=== PATIENT | female | born 1950 | race Caucasian/White ===

== ENCOUNTER 2017-11-20 11:16 | Inpatient (IN) | payer OTHER ==
[2017-11-04 10:09] VITALS: BMI 52.0
--- NOTE | 2017-11-04 10:37 | PAT Medication Instructions ---
Service Date Nov 04, 2017. Current Home Medication List Cyanocobalamin (Vitamin B12), 1,000 MCG SL QAM Cyclobenzaprine Hcl (Flexeril), 10 MG PO TID PRN for PRN Gabapentin (Neurontin), 100 MG PO TID Hydrochlorothiazide (Hctz), 25 MG PO QAM Hydrocodone/Acetaminophen 5MG/325MG (Lenora 5MG/325MG), 1 TABLET PO PRN PRN for Pain Meloxicam (Mobic), 15 MG PO QAM Multivitamin (Multivitamin), 1 TAB PO for AM Tolterodine Tartrate (Detrol LA), 1 CAP PO HS Medication Instructions For Your Scheduled Surgery - Check with surgeon for instructions: Meloxicam (Mobic), 15 MG PO QAM - Hold the following medications the morning of surgery: Cyanocobalamin (Vitamin B12), 1,000 MCG SL QAM Cyclobenzaprine Hcl (Flexeril), 10 MG PO TID PRN for PRN Hydrochlorothiazide (Hctz), 25 MG PO QAM Multivitamin (Multivitamin), 1 TAB PO for AM - Take the following medications the morning of surgery with a sip of water: Hydrocodone/Acetaminophen 5MG/325MG (Lenora 5MG/325MG), 1 TABLET PO PRN PRN for Pain (okay to take up to 4 hours prior to surgery if needed) Gabapentin (Neurontin), 100 MG PO TID - Take the following medications as scheduled the night before surgery: Tolterodine Tartrate (Detrol LA), 1 CAP PO HS Hydrocodone/Acetaminophen 5MG/325MG (Lenora 5MG/325MG), 1 TABLET PO PRN PRN for Pain (if needed) Gabapentin (Neurontin), 100 MG PO TID Cyclobenzaprine Hcl (Flexeril), 10 MG PO TID PRN for PRN (if needed) If you have any questions please call us at [phone] or [phone] or [phone]
[2017-11-04 11:33] LABS: BASO % 0.2 %; BASO ABS # 0.02 K/uL (0-0.2); EOS % 0.6 %; EOS ABS # 0.06 K/uL (0-0.5); HEMATOCRIT 39.9 % (37-47); HEMOGLOBIN 13.1 g/dL (12.0-16.0); IG# 0.02 K/uL (0.00-0.02); LYMPH % 21.7 %; LYMPH ABS # 2.35 K/uL (1.2-3.4); MEAN CELL VOLUME 87.5 fL (80-100); MEAN CORPUSCULAR HEMOGLOBIN 28.7 pg (25-34); MEAN CORPUSCULAR HGB CONC 32.8 g/dl (32-36); MEAN PLATELET VOLUME 10.1 fL (7.4-10.4); MONO % 6.7 %; MONO ABS # 0.73 K/uL (0.11-0.59); NEUT % 70.6 %; NEUT ABS # 7.66 K/uL (1.4-6.5); PLATELET COUNT 458 K/uL (130-400); RED CELL DISTRIBUTION WIDTH CV 14.4 % (11.5-14.5); RED CELL DISTRIBUTION WIDTH SD 45.3 fL (36.4-46.3); WHITE BLOOD COUNT 10.84 K/uL (4.8-10.8)
[2017-11-04 11:43] LABS: PTT PATIENT 26.3 SECONDS (21.0-31.0)
[2017-11-04 11:43] LABS: CALCIUM 9.1 mg/dl (8.5-10.1); CREATININE 0.68 mg/dl (0.60-1.20); POTASSIUM 3.5 mmol/L (3.5-5.1)
[2017-11-04 12:14] LABS: HEMOGLOBIN A1C 5.6 % (4.5-5.6)
--- NOTE | 2017-11-11 22:14 | HISTORY & PHYSICAL EXAMINATION ---
DATE OF ADMISSION: 11/20/2017 CHIEF COMPLAINT: Bilateral knee pain and discomfort, right side greater than left. HISTORY OF PRESENT ILLNESS: The patient is a 67-year-old white female from [place] who presents for surgical treatment of her knees. She has a long history of bilateral knee pain and discomfort followed by my partner Dr. Pittman. The right knee has been bothering her more than the left. She has been using a cane to get around for the past couple of years. She has had injections which provided very temporary relief. This has gotten less successful over time. Her walking tolerance is very limited. She has global pain. She has nighttime discomfort. Of note, the patient did recently see the pain physicians at [facility]. She had some type of ablation in her back. She takes tramadol and hydrocodone. She also has a history of gastric bypass surgery. PAST MEDICAL HISTORY: Significant for: 1. Low back pain status post thermal ablation. 2. Sciatica. 3. Obesity, status post gastric bypass surgery in 2006. She initially weighed 350 pounds and then went down to 260 and back up to 315, new around 275. 5. Umbilical hernia repair. PREVIOUS SURGERIES: Include: 1. Gastric bypass surgery in 2006. 2. Cholecystectomy. ALLERGIES: PHENERGAN. CURRENT MEDICINES: Include: 1. Hydrochlorothiazide 25 mg a day. 2. Detrol 2 mg a day. 3. Neurontin 100 mg. 4. Tramadol 50 mg. 5. Meloxicam 15 mg a day. 6. Sublingual vitamin B12. 7. Hydrocodone. SOCIAL HISTORY: A 67-year-old white female. She is from [place], lives by herself. FAMILY HISTORY: Noncontributory. REVIEW OF SYSTEMS: Negative for diabetes. Denies any chest pain, no shortness of breath. No history of DVT or PE. PHYSICAL EXAMINATION: GENERAL: Reveals obese, middle-aged female. She looks to be in reasonably good health. HEENT: Benign. NECK: Supple, no lymphadenopathy. LUNGS: Clear to auscultation. HEART: Regular rate and rhythm. ABDOMEN: Soft, nontender, nondistended. EXTREMITIES: Grossly neurovascularly intact except as follows: Examination of both knees reveals the patient walks with waddling gait. She uses a cane to walk. She has varus alignment to both knees with a varus thrust with weightbearing. She has some mild stasis changes distally. Range of motion is pretty symmetrically, it is about 5 degrees short of full extension to about 110-115 degrees of flexion. No instability. No pain with hip motion. X-RAYS: X-rays reveal advanced bilateral knee DJD. She has complete loss of her medial joint space. She has diffuse osteopenia. ASSESSMENT: A 67-year-old white female status post gastric bypass surgery with a history of back pain as well as chronic severe bilateral knee degenerative joint disease. She has failed conservative treatment and would like to consider having surgery. Right knee is bothering more than the left. PLAN: We will take her to the operating room and do a right total knee replacement. The risks and benefits of this procedure were explained to the patient including but not limited to DVT, PE, , infection, neurological injury, vascular injury, bleeding problem, pain, limited range of motion, stiffness, failure to relieve her symptoms, incomplete relief of symptoms, need for further surgery in the future, fracture, leg length inequality, nerve palsy, etc. The patient understands and desires to proceed. Informed consent was obtained. We did talk about trying to get off her tramadol and hydrocodone before surgery. We did discuss with her increased risk of infection based on her weight. She understands and desires to proceed. We will likely need to put a tibial stem due to her large size and osteopenia. As far as discharge plans, she is planning to be discharged to [facility] as she lives by herself. She went there after gallbladder surgery.
[2017-11-20] VITALS (7 sets, daily range): BP systolic 115–157; BP diastolic 56–93; PULSE 71–105; TEMP 36.3–36.8; O2SAT 90–100; Ht 157.5 cm; Wt 128.7 kg
[~2017-11-20] VITALS: Ht 157.5 cm; Wt 128.7 kg
[~2017-11-20 11:16] MED LIST: ACETAMINOPHEN 500 MG TAB PO SCH; BUPIVACAINE 0.25% 30 ML VIAL ONE; BUPIVACAINE 0.5 % 5 MG/1 ML PF 10ML VIAL ONE; BUPIVACAINE LIPOSOME 266 MG, BUPIVACAINE/EPINEPHRINE INJ 50 ML, SODIUM CHLORIDE 0.9% PF... INFIL SCH; CEFAZOLIN 3000MG IV PUSH 22.5 ML IV SCH; CYAN100020 PO; CYCL10TA6 PO; DTRSR/2 PO; FAMOTIDINE 20 MG TAB PO SCH; GABA-112 PO; GABAPENTIN 300 MG CAP PO SCH; HYDR-5688 PO; HYDR25TA4 PO; LACTATED RINGER'S 1000ML 1,000 ML IV SCH; LACTATED RINGER'S 1000ML 500 ML IV SCH; LACTATED RINGER'S 1000ML IV SCH; MELO7.5T5 PO; METOCLOPRAMIDE HCL 10 MG TAB PO SCH; MULT-506 PO; SCOPOLAMINE 1.5 MG TDSY TD SCH; TRANEXAMIC ACID INJ 1,000 MG x 1 Bag Preop IV SCH
[2017-11-20] MEDS ORDERED: PROPOFOL IV EMULSION 10 MG/ML 20 ML VIAL IV ONE (11:38)
[2017-11-20] MEDS ORDERED: MIDAZOLAM HCL 1 MG/ML 2ML VIAL ONE ×4 (11:38→15:04)
[2017-11-20] MEDS ORDERED: BACITRACIN 50000 UNIT VIAL ONE (12:21)
[2017-11-20] MEDS ORDERED: BUPIVACAINE LIPOSOME 1/3% 266 MG/20 ML VIAL INFIL ONE (12:21)
[2017-11-20] MEDS ORDERED: SODIUM CHLORIDE 0.9% PF 50 ML VIAL ONE (12:21)
[2017-11-20] MEDS ORDERED: BUPIVACAINE 0.25% 30 ML VIAL ONE (12:25)
[2017-11-20] MEDS ORDERED: EpINEphrine INJ 1MG/ML AMP 1 MG/ML AMP ONE (12:25)
[2017-11-20] MEDS ORDERED: ONDANSETRON INJ 2 MG/ML 2 ML VIAL IV PRN ×2 (12:30→16:00)
[2017-11-20] MEDS ORDERED: PHENYLEPHRINE 100MCG/ML 5ML SYR IV PRN (12:30)
[2017-11-20] MEDS ORDERED: ATROPINE SULFATE 0.1 MG/ML 5ML SYR IV PRN (12:30)
[2017-11-20] MEDS ORDERED: KETOROLAC TROMETHAMINE 15 MG/ML VIAL IV. PRN (12:30)
[2017-11-20] MEDS ORDERED: EpHEDrine SULFATE INJ 50 MG/ML AMP IV PRN (12:30)
--- NOTE | 2017-11-20 12:56 | History & Physical Bridge Note ---
H&P Re-Evaluation Bridge Note: I have examined the patient, reviewed the History & Physical and in the interval since the performance of the History & Physical I have noted the following changes of clinical significance: No changes noted
[2017-11-20] MEDS ORDERED: VANCOMYCIN HCL 1000MG/20ML VIAL ONE ×2 (13:14→15:13)
[2017-11-20] MEDS ORDERED: FENTANYL CITRATE INJ 50 MCG/1 ML 2 ML VIAL ONE ×2 (14:42→15:11)
[2017-11-20] MEDS ORDERED: FLUMAZENIL 0.1 MG/1 ML 10 ML VIAL IV ONE (15:55)
--- NOTE | 2017-11-20 15:55 | [facility] Post Operative Brief Note ---
Immediate Operative Summary Operative Date Nov 20, 2017. Pre-Operative Diagnosis Right Knee Degenerative Joint Disease Post-Operative Diagnosis Same as preop Procedure(s) Performed Right Total Knee Arthroplasty Surgeon Dr. Hannah [facility] Attendant Surgeon(s) Trace Griggs PA-C Estimated Blood Loss 50 ml Findings Consistent with Post-Op Diagnosis Specimens A. Right Knee Bone and Tissue Drains None Anesthesia Type MAC Spinal Regional Complication(s) none Disposition Accompanied Pt To Recover: no Disposition: Recovery Room / PACU
[2017-11-20] MEDS ORDERED: MAGNESIUM HYDROXIDE SUSP 30 ML UDC PO PRN (16:00)
[2017-11-20] MEDS ORDERED: BISACODYL 10 MG SUPP PR PRN (16:00)
[2017-11-20] MEDS ORDERED: ALUMINUM/MAGNESIUM/SIMETH (MAALOX MAX) 30 ML UDC PO PRN (16:00)
[2017-11-20] MEDS ORDERED: HYDROmorphone INJ 0.5 MG/0.5 ML SYR IV PRN (16:00)
[2017-11-20] MEDS ORDERED: SILVER SULFADIAZINE 1% CR 50 GM JAR EXT PRN (16:00)
[2017-11-20] MEDS ORDERED: METOCLOPRAMIDE HCL INJ 5 MG/ML 2 ML VIAL IV PRN (16:00)
[2017-11-20] MEDS ORDERED: ZOLPIDEM TARTRATE 5 MG TAB PO PRN (16:00)
[2017-11-20] MEDS ORDERED: CYCLOBENZAPRINE HCL 10 MG TAB PO PRN (16:00)
[2017-11-20] MEDS: HYDROmorphone INJ 2 MG/ML SYR/VIAL IV PRN ×2 (16:11→16:20)
--- NOTE | 2017-11-20 16:33 | DIAGNOSTIC IMAGING REPORT ---
R KNEE 1 OR 2 VIEWS ROUTINE CLINICAL HISTORY: Postoperative evaluation. COMPARISON: Right knee radiographs October 26, 2017. FINDINGS: Alignment of the right knee arthroplasty with longstem tibial component is anatomic. There is no periprosthetic fracture or unexpected radiopaque foreign body. There may be screw tracts within the medial tibial plateau. There are skin yan. IMPRESSION: Expected findings following total right knee arthroplasty. Electronically signed by: Vikram Muller M.D. 11/20/2017 4:32 PM Dictated Date/Time: 11/20/2017 4:31 PM
--- NOTE | 2017-11-20 16:47 | Anesthesiology Progress Note ---
Anesthesia Post Op Note Date & Time Nov 20, 2017 at 16:47 Vital Signs Pain Intensity: 4 Vital Signs Past 12 Hours Date Time Temp Pulse Resp B/P (MAP) Pulse Ox O2 Delivery O2 Flow Rate FiO2 11/20/17 16:41 73 16 11/20/17 16:41 72 16 100 11/20/17 16:40 140/64 11/20/17 16:36 77 15 92 11/20/17 16:36 77 15 11/20/17 16:35 150/72 11/20/17 16:31 75 16 150/50 96 11/20/17 16:31 74 16 11/20/17 16:26 74 16 11/20/17 16:26 73 16 95 11/20/17 16:25 144/71 11/20/17 16:23 75 12 99 11/20/17 16:23 74 12 11/20/17 16:21 118/89 11/20/17 16:18 76 21 96 11/20/17 16:18 78 21 11/20/17 16:16 120/76 11/20/17 16:13 75 14 11/20/17 16:13 76 14 96 11/20/17 16:10 127/75 11/20/17 16:08 79 24 11/20/17 16:08 77 24 96 11/20/17 16:06 130/63 11/20/17 16:03 78 138/73 94 11/20/17 16:03 78 11/20/17 16:03 36.6 78 16 138/73 94 Nasal Cannula 2 11/20/17 11:42 36.8 105 20 131/93 94 Room Air Notes Mental Status: alert / awake / arousable, participated in evaluation Pt Amnestic to Procedure: Yes Nausea / Vomiting: adequately controlled Pain: adequately controlled Airway Patency, RR, SpO2: stable & adequate BP & HR: stable & adequate Hydration State: stable & adequate Anesthetic Complications: no major complications apparent
[2017-11-20] MEDS: CHECK SCOPOLAMINE PATCH PLACEMENT SCH ×2 (17:22→23:05)
[2017-11-20] MEDS: D5W AND 1/2NSS + 20MEQ KCL 1,000 ML IV SCH (17:58)
[2017-11-20] MEDS: KETOROLAC TROMETHAMINE 15 MG/ML VIAL IV. SCH ×2 (17:58→23:02)
[2017-11-20] MEDS: FERROUS GLUCONATE 324 MG TAB PO SCH (17:58)
[2017-11-20] MEDS: OXYCODONE HCL IR 5 MG TAB (IMMEDIATE RELEASE) PO PRN (18:59)
--- NOTE | 2017-11-20 19:21 | OPERATIVE REPORT ---
DATE OF OPERATION: 11/20/2017 SURGEON: Wicho Hannah MD. ADULT CARE MANAGER: JEN Urias. PREOPERATIVE DIAGNOSIS: Right knee degenerative joint disease. POSTOPERATIVE DIAGNOSIS: Same. PROCEDURE PERFORMED: Right cemented posterior stabilized total knee arthroplasty. COMPLICATIONS: None. ESTIMATED BLOOD LOSS: 50 mL FLUID REPLACEMENT: 2500 mL crystalloid fluid replacement. TOURNIQUET TIME: 96 minutes at 350 mmHg. ANESTHESIA: Spinal with adductor canal block. DRAINS: None. SPECIMEN: Right knee sent for pathology. OPERATIVE INDICATIONS: The patient is a 67-year-old morbidly obese female who has a long history of bilateral knee pain and discomfort, right side greater than left. She has undergone gastric bypass surgery with some weight loss but she has yo-yoed her weight over the years. She has continued to be debilitated by severe bilateral knee pain. She has had to resort to using a cane for the past several years. She elected to proceed with total knee arthroplasty. The increased risk with her size and obesity was explained and she understood and wanted to proceed. We did place a tibial stem in the tibia due to her large size, obesity and osteopenia from her gastric bypass surgery. OPERATIVE FINDINGS: Operative findings revealed advanced right knee DJD. She had grade 4 [id number]-[id number] disease in all 3 compartments. Moderate size joint effusion. A very large soft tissue envelope. Her bone was not a severely osteopenic as expected based on x-rays and history. OPERATIVE IMPLANTS: Operative implants consisted of: 1. Biomet size 65 right posterior stabilized femoral component. 2. Biomet size 67 tibial tray with a 5 mm offset and 80 x 13 mm fluted stem and a small cruciate wing. 3. A 10 mm posterior stabilized polyethylene insert. 4. A 31 x 8 all poly patella. OPERATIVE PROCEDURE: The patient taken to the operating room, identified and placed on operative table in supine position. All contact areas were appropriately padded. IV antibiotics were provided by the anesthesia team. A spinal anesthetic and adductor canal block had been provided in the holding area. Anne catheter was placed in sterile fashion. Right thigh tourniquet was then placed. Right lower extremity was then prepped and draped in the usual sterile fashion. The right leg was elevated and exsanguinated with Esmarch and tourniquet was placed at 350 mmHg. An anterior approach to the right knee was then performed through a longitudinal incision centered over the patella. Sharp dissection was carried out through the subcutaneous tissues down to the level of the extensor mechanism. A medial parapatellar arthrotomy incision was made. Some subperiosteal dissection was carried out medially. The fat pad was resected from beneath the patellar tendon. The lateral patellofemoral ligament was released. Patella was subluxated laterally and the knee was flexed. The osteophytes were taken off the distal femur. The ACL and PCL were then released from the distal femur and the tibia subluxated anteriorly. The tibial eminence was then resected. The intramedullary canal was entered and then reamed up to a size 13. We used the IM reamer to cut the tibia. We removed about 2 mm from the most deficient aspect tibia from the medial side. This was sized to a size 67. Some osteophytes were taken off posteromedially. I then waited to prepare the remainder of the tibia until the end of the case. The distal femur was entered with a sharp drill. Intramedullary canal was suctioned. A right 5-degree valgus cutting guide was placed. Distal femoral cutting block was placed. Distal femoral cut was made to take an additional 3 mm of bone off the distal femur. The femur was then sized to a size 65, and it sized exactly to a 65. The AP cutting block was pinned parallel to the epicondylar axis which was 4 degrees of external rotation. The anterior cut, anterior chamfer, posterior cut, posterior chamfer cuts were made. The box cutting guide was placed and adjusted slightly lateral and the box cut was made. The knee was flexed. The remnants of the medial and lateral menisci were excised. The osteophytes were taken off the posterior aspect of the femur. I then went on to prepare the remainder of the tibia. The tibial tray was placed on the tibia and the 5 mm offset guide was selected. I then used the offset reamer to ream the tibia and the cruciate wing punch was used to create the defect for the cruciate wing. Upon placing the trial tibial tray, I really could not get this down, so I did ream up to a 14 and was able to place the trial tray in place. We then trialed the knee and a 10 mm insert fit most appropriately. Attention was then drawn to the patella. Patella was cleaned of all soft tissues. Patella thickness measured 22 mm and cut down to 13mm. It was sized to a size 31 patella. Lug holes were drilled for the 31 patella. Lateral osteophyte was removed. Patella button was placed. Knee was taken through range of motion and the patella tracked nicely with no thumbs test. Attention was then drawn toward placement of permanent components. All trial components were removed. A bone plug was placed in the distal femur to limit blood loss. I irrigated the wound extensively. A double batch of Palacos G cement was mixed with an additional gram of vancomycin due to her obesity and nutritional status. A size 65 right posterior stabilized femoral component was then placed. Upon placing the tibial tray, I could not get the tray down, only about half the way down the canal on initial placement. Therefore, I took the cement off of the surface of the tibia and off the tibial tray and just elected to cement the patella. We did place a trial tray in placed with a 10 insert and held the knee out into full extension until cement hardened. Once the cement hardened, I removed the trial tibia and reassessed the situation. We over reamed the tibial canal and were able to get the tibial tray in reasonably well. There were occasions where it still kind of hung up a little high, but with just a little tapping, we could get it seated appropriately. Therefore, the tray was clean. The knee was irrigated again. A single batch of Palacos G cement was mixed with an additional gram of vancomycin. The tibial tray was then cemented in place. 10 mm insert was placed. The knee was brought out in full extension. All extraneous cement was removed. Once the cement hardened, final cement check was performed. The wound was then irrigated. I injected locally with 100 mL of combination of 20 mL of Exparel, 30 mL of normal saline, 50 mL of 0.25% Marcaine with epinephrine. The patient did receive 1 gram of tranexamic acid. The tourniquet was then let down for a tourniquet time of 96 minutes. Hemostasis was assured with use of electrocautery. The wound was once again irrigated. Extensor mechanism was closed with a combination of #1 PDS suture and #1 Vicryl suture in a [id number] fashion. Extensor mechanism was checked and found to be intact. Subcutaneous tissues were then closed with 2-0 Dexon suture in a buried interrupted fashion. Skin was closed with skin yan. The leg was then cleaned and dried and a sterile dressing composed of Xeroform, 4 x 4's, sterile cast padding and Justyn bandage were applied. The patient was then transferred to the recovery in stable condition. The patient tolerated the procedure well with no complications. All needle and sponge counts were correct at the end of the operation. I attest to the content of the Intraoperative Record and any orders documented therein. Any exceptions are noted below. JANNETTED
[2017-11-20] MEDS: DOCUSATE SODIUM 100 MG CAP PO SCH (20:43)
[2017-11-20] MEDS: TAPENTADOL ER 50 MG TABCR PO SCH (20:43)
[2017-11-20] MEDS: TOLTERODINE TARTRATE LA 2 MG CAPCR PO SCH (20:44)
[2017-11-20] MEDS: SENNA 8.6 MG TAB PO SCH (20:44)
[2017-11-20] MEDS: ASPIRIN 81 MG ECTAB PO SCH (20:44)
[2017-11-20] MEDS: GABAPENTIN 100 MG CAP PO SCH (20:44)
[2017-11-20] MEDS: CEFAZOLIN IV 2,000 MG in SYRINGE 0 ML IV SCH (21:34)
[2017-11-20] MEDS: ACETAMINOPHEN 500 MG TAB PO SCH ×2 (21:34→21:41)
[2017-11-20] MEDS ORDERED: TRANEXAMIC ACID INJ 1,000 MG in SODIUM CHLORIDE 0.9% 100ML 100 ML IV SCH (22:00)
[2017-11-21] MEDS: D5W AND 1/2NSS + 20MEQ KCL 1,000 ML IV SCH ×2 (01:18→11:10)
[2017-11-21 03:30] VITALS: BP 120/61; PULSE 72; TEMP 36.3; O2SAT 98
[2017-11-21] MEDS: KETOROLAC TROMETHAMINE 15 MG/ML VIAL IV. SCH ×3 (05:04→18:02)
[2017-11-21] MEDS: ACETAMINOPHEN 500 MG TAB PO SCH ×3 (05:05→21:30)
[2017-11-21] MEDS: CEFAZOLIN IV 2,000 MG in SYRINGE 0 ML IV SCH (05:05)
[2017-11-21 05:53] LABS: HEMATOCRIT 35.2 % (37-47); HEMOGLOBIN 11.5 g/dL (12.0-16.0); MEAN CELL VOLUME 88.2 fL (80-100); MEAN CORPUSCULAR HEMOGLOBIN 28.8 pg (25-34); MEAN CORPUSCULAR HGB CONC 32.7 g/dl (32-36); MEAN PLATELET VOLUME 9.7 fL (7.4-10.4); PLATELET COUNT 287 K/uL (130-400); RED CELL DISTRIBUTION WIDTH SD 48.6 fL (36.4-46.3); WHITE BLOOD COUNT 11.59 K/uL (4.8-10.8)
[2017-11-21 06:21] LABS: CALCIUM 8.3 mg/dl (8.5-10.1); CREATININE 0.93 mg/dl (0.60-1.20); POTASSIUM 4.3 mmol/L (3.5-5.1)
[2017-11-21 07:40] VITALS: BP 112/69; PULSE 82; TEMP 37.4; O2SAT 98
--- NOTE | 2017-11-21 07:57 | PROGRESS NOTE ---
DATE: 11/21/2017 SUBJECTIVE: A 67-year-old white female postop day 1 from a right knee replacement. She is doing well. Pain is controlled. No chest pain or shortness of breath. Not feeling dizzy or lightheaded. OBJECTIVE: VITAL SIGNS: Temperature 36.3. Vital signs stable. PHYSICAL EXAMINATION: GENERAL: Reveals a healthy, pleasant middle-aged female. She is sitting up in her bed and looks quite comfortable. EXTREMITIES: Examination of the right leg reveals it to be well aligned. Dressing is clean, dry and intact. She can dorsiflex and plantarflex her foot appropriately. She can do a straight leg raise. LABORATORY DATA: Hemoglobin is 11.5, hematocrit 35.2. Electrolytes are stable. ASSESSMENT: A 67-year-old white female postop day 1 from a right knee replacement, doing well. Pain is controlled. She is neurologically intact. PLAN: 1. DVT prophylaxis including thigh high TEDs, SCDs, and aspirin twice a day. 2. PT, OT. Weightbearing as tolerated. Right total knee protocol. 3. Pain control, doing well with current pain regimen. 4. Disposition: She is hoping to be discharged to [facility] for a rehab stay once stable.
[2017-11-21] MEDS: CHECK SCOPOLAMINE PATCH PLACEMENT SCH ×2 (08:00→16:00)
[2017-11-21] MEDS ORDERED: MULTIVITAMIN TAB PO SCH (09:00)
[2017-11-21] MEDS: FERROUS GLUCONATE 324 MG TAB PO SCH ×3 (09:28→18:02)
[2017-11-21] MEDS: TAPENTADOL ER 50 MG TABCR PO SCH ×2 (09:29→21:29)
[2017-11-21] MEDS: HYDROCHLOROTHIAZIDE 25 MG TAB PO SCH (09:29)
[2017-11-21] MEDS: GABAPENTIN 100 MG CAP PO SCH ×3 (09:29→21:30)
[2017-11-21] MEDS: CYANOCOBALAMIN 500 MCG TAB (VIT B-12) PO SCH (09:52)
[2017-11-21] MEDS: OXYCODONE HCL IR 5 MG TAB (IMMEDIATE RELEASE) PO PRN (09:52)
[2017-11-21] MEDS: MULTIVITAMIN TAB PO SCH (09:53)
[2017-11-21] MEDS: DOCUSATE SODIUM 100 MG CAP PO SCH ×2 (09:53→21:00)
[2017-11-21] MEDS: PANTOprazole SOD 40 MG TAB PO SCH (09:54)
[2017-11-21] MEDS: ASPIRIN 81 MG ECTAB PO SCH ×2 (09:54→21:31)
[2017-11-21 11:49] VITALS: BP 112/71; PULSE 92; TEMP 37; O2SAT 91
[2017-11-21 15:00] VITALS: BP 101/57; PULSE 90; TEMP 36.8; O2SAT 91
[2017-11-21] MEDS: SENNA 8.6 MG TAB PO SCH (21:00)
[2017-11-21] MEDS: TOLTERODINE TARTRATE LA 2 MG CAPCR PO SCH (21:39)
[2017-11-21] MEDS ORDERED: ASPEC81 PO (21:46)
[2017-11-21] MEDS ORDERED: ACET-24 PO (21:46)
[2017-11-21] MEDS ORDERED: FRRG PO (21:46)
--- NOTE | 2017-11-21 21:50 | Discharge Instructions ---
Discharge Instructions Date of Service Nov 21, 2017. Admission Reason for Admission: Right Knee Degenerative Joint Disease, Knee Pain Discharge Discharge Diagnosis / Problem: Right Knee Replacement Discharge Goals Goal(s): Decrease discomfort, Improve function, Increase independence, Improve disease control, Therapeutic intervention Activity Recommendations Activity Level: Assistance Required Therapies: Physical Therapy, Occupational Therapy Weightbearing Status: Right weightbearing . Additional Information Patient informed of condition: Yes Advance Directives: No DNR: No Level of Care: Acute Rehab Communicable Disease: No Prognosis: Improving Instructions / Follow-Up Instructions / Follow-Up ACTIVITY RECOMMENDATIONS: Physical Therapy: * You will go to physical therapy three times each week for four to six weeks after your surgery in order to regain your knee range of motion and to retrain your knee to work properly. * It is just as important to make sure you are getting your knee perfectly straight as it is to regain your knee bend. * Taking a pain pill an hour before therapy can help you have a more productive and comfortable therapy session. Home Exercise: * You were shown a series of exercises (heel props, heel slides, etc.) in the hospital. Do these exercises three to four times each day including the exercises you were shown in physical therapy. Walking: * Get up and walk several times each day. For the first four weeks, try not to stand or walk for more than one hour at a time. If you do stand or walk for more than one hour, you will not hurt anything, but your knee and leg will likely swell. * As you feel comfortable, you may change from the walker or crutches to a cane and then to independent walking. MEDICATIONS: New Medicine: * You will likely be taking one or more of these medications: 1. Oxycodone - A quick and shorter-acting pain medication. Take one to two tablets every four to six hours to lessen your pain. 2. Iron Sulfate - Take three times each day for the month after surgery to help you replace the blood lost during surgery. 3. Aspirin - Thins your blood to lessen the chance of forming a blood clot. * The most common side effects of pain medicine and iron are nausea and constipation. If nausea or constipation is too much of a problem or if you have any questions about your new medicines or doses, call [facility] at [phone]. We will try to help you manage these issues. VERY IMPORTANT TO READ AND REVIEW" Pain: * The immediate post-operative period after knee replacement surgery is often quite painful. * You are given a prescription for pain medicine. You should take it, as directed, when you need it, especially before physical therapy and before going to bed. Pain that interferes with sleep is very common and can last several months. * You will likely need pain medicine for the first four to six weeks. It will not stop all of the pain. The pain will lessen and as you feel better, you may change to milder pain medicine such as Tylenol. * The most common side effects of pain medicine are nausea and constipation, so don't take more than you need. SPECIAL CARE INSTRUCTIONS: TEDs/Elastic Stockings: * The white elastic stockings help limit swelling and prevent blood clots from forming in your legs. The more you wear them, the more they work. * Wear them for six weeks after knee replacement surgery and four weeks after partial knee replacement. Prevention of Infection: * Take antibiotics one hour before any dental cleaning, dental work, urological procedure, gastrointestinal procedure or any invasive surgery in order to prevent your new joint from getting infected. * You may get the antibiotics from the doctor performing the procedure or you may call our office at before and we will call in a prescription to the pharmacy of your choice. Things to Watch For: * Drainage from the incision site that occurs more than one week after your surgery. * Severely increased knee/leg pain or swelling. * Increased redness at the incision site. * Fever above 102 degrees Fahrenheit. * Unusual chest pain or shortness of breath. * Unusual pain or burning with urination. Call [facility] at with any of the above problems or if you have any questions about your medicines or recovery. FOLLOW UP VISIT: Make an appointment to see your doctor for approximately two weeks after surgery for a progress check and staple removal by calling the office at . Current Hospital Diet Patient's current hospital diet: Regular Diet Discharge Diet Recommended Diet: Regular Diet Procedures Procedures Performed: Right Total Knee Arthroplasty Pending Studies Studies pending at discharge: no Laboratory Results Hemoglobin A1c Test 11/04/17 10:42 Range/Units Estimated Average Glucose 114 mg/dl Hemoglobin A1c 5.6 4.5-5.6 % Medical Emergencies . Who to Call and When: Medical Emergencies: If at any time you feel your situation is an emergency, please call 911 immediately. . Non-Emergent Contact Non-Emergency issues call your: Surgeon . . "Provider Documentation" section prepared by Wicho Hannah. . Core Measure Problem Core Measures: None
[2017-11-21] MEDS ORDERED: RXC5 PO (21:51)
[2017-11-21 23:23] VITALS: BP 118/70; PULSE 78; TEMP 36.6; O2SAT 91
[2017-11-22] MEDS: CHECK SCOPOLAMINE PATCH PLACEMENT SCH ×4 (00:16→23:15)
[2017-11-22] MEDS: KETOROLAC TROMETHAMINE 15 MG/ML VIAL IV. SCH ×3 (00:17→11:58)
[2017-11-22] MEDS: OXYCODONE HCL IR 5 MG TAB (IMMEDIATE RELEASE) PO PRN ×2 (02:41→11:57)
[2017-11-22] MEDS: ACETAMINOPHEN 500 MG TAB PO SCH ×3 (06:16→21:25)
[2017-11-22 07:30] VITALS: BP 119/76; PULSE 81; TEMP 36.9; O2SAT 95
--- NOTE | 2017-11-22 08:08 | PROGRESS NOTE ---
DATE: 11/22/2017 SUBJECTIVE: A 67-year-old white female postop day 2 from right knee replacement. Her knee was pretty painful yesterday but doing a little bit better this morning. No chest pain or shortness of breath. Not feeling dizzy or lightheaded. OBJECTIVE: VITAL SIGNS: Temperature 36.9. Vital signs stable. PHYSICAL EXAMINATION: GENERAL: Reveals a pleasant elderly female. She is lying in bed, looks pretty comfortable. EXTREMITIES: Examination of the right leg reveals the leg to be well aligned. Dressing is clean, dry and intact. Minimal drainage. Calf is soft and supple. She is neurologically intact. ASSESSMENT: A 67-year-old white female postop day 2 from right knee replacement, doing pretty well. Pain is reasonably well controlled. She is neurologically intact. PLAN: 1. DVT prophylaxis including thigh-high TEDs, SCDs, and aspirin twice a day. 2. PT/OT. Weightbearing as tolerated. Right total knee protocol. 3. Pain control, doing pretty well with current pain regimen. 4. Disposition: Plan to discharge to [facility] if approved. If not, likely going to [facility]. Waiting for insurance approval.
[2017-11-22] MEDS: FERROUS GLUCONATE 324 MG TAB PO SCH ×3 (08:46→18:12)
[2017-11-22] MEDS: MULTIVITAMIN TAB PO SCH (08:47)
[2017-11-22] MEDS: ASPIRIN 81 MG ECTAB PO SCH ×2 (08:47→21:25)
[2017-11-22] MEDS: DOCUSATE SODIUM 100 MG CAP PO SCH ×2 (08:47→21:00)
[2017-11-22] MEDS: PANTOprazole SOD 40 MG TAB PO SCH (08:47)
[2017-11-22] MEDS: TAPENTADOL ER 50 MG TABCR PO SCH ×2 (08:48→21:25)
[2017-11-22] MEDS: GABAPENTIN 100 MG CAP PO SCH ×3 (08:48→21:25)
[2017-11-22] MEDS: CYANOCOBALAMIN 500 MCG TAB (VIT B-12) PO SCH (08:48)
[2017-11-22] MEDS: HYDROCHLOROTHIAZIDE 25 MG TAB PO SCH (08:49)
[2017-11-22 15:23] VITALS: BP 106/65; PULSE 72; TEMP 36.9; O2SAT 96
[2017-11-22] MEDS: SENNA 8.6 MG TAB PO SCH (21:00)
[2017-11-22] MEDS: TOLTERODINE TARTRATE LA 2 MG CAPCR PO SCH (21:25)
[2017-11-22] MEDS ORDERED: COUGH DROP (SUGAR FREE) LOZ 24 LOZ/1 BOX LOZ PRN (23:30)
[2017-11-22 23:40] VITALS: BP 115/70; PULSE 96; TEMP 36.8; O2SAT 94
[2017-11-23] MEDS: OXYCODONE HCL IR 5 MG TAB (IMMEDIATE RELEASE) PO PRN ×2 (03:41→09:47)
[2017-11-23] MEDS: ACETAMINOPHEN 500 MG TAB PO SCH ×2 (05:35→12:44)
[2017-11-23 06:06] VITALS: BP 126/70; PULSE 83; TEMP 36.7; O2SAT 94
--- NOTE | 2017-11-23 07:24 | PROGRESS NOTE ---
DATE: 11/23/2017 SUBJECTIVE: A 67-year-old white female postop day 3 from right knee replacement. She is doing well this morning. Pretty painful night. This is the most pain that she has had in a while. Doing better this morning. No chest pain or shortness of breath. Not feeling dizzy or lightheaded. OBJECTIVE: VITAL SIGNS: Temperature 36.7. Vital signs stable. GENERAL: Reveals a healthy, pleasant middle-aged female. She is lying in bed, looks pretty comfortable. EXTREMITIES: Examination of the right leg reveals the leg to be well aligned. Dressing is clean, dry and intact. She can dorsiflex and plantarflex her foot appropriately. Calf is soft and supple. ASSESSMENT: A 67-year-old white female postop day 3 from right knee replacement, doing reasonably well. Pretty significant pain intermittently which is not to be unexpected. PLAN: 1. DVT prophylaxis including thigh-high TEDs, SCDs, and aspirin twice daily. 2. PT/OT. Weightbearing as tolerated. Right total knee protocol. 3. Pain controlled on all of her current pain regimen. 4. Disposition: Plan to discharge to [facility]. If not acceptable there, she will likely go to [facility].
[2017-11-23] MEDS: TAPENTADOL ER 50 MG TABCR PO SCH (07:33)
[2017-11-23] MEDS: GABAPENTIN 100 MG CAP PO SCH ×2 (07:33→12:44)
[2017-11-23] MEDS: PANTOprazole SOD 40 MG TAB PO SCH (07:33)
[2017-11-23] MEDS: ASPIRIN 81 MG ECTAB PO SCH (07:34)
[2017-11-23] MEDS: FERROUS GLUCONATE 324 MG TAB PO SCH ×2 (07:34→12:44)
[2017-11-23] MEDS: HYDROCHLOROTHIAZIDE 25 MG TAB PO SCH (07:35)
[2017-11-23] MEDS: MULTIVITAMIN TAB PO SCH (07:35)
[2017-11-23] MEDS: CYANOCOBALAMIN 500 MCG TAB (VIT B-12) PO SCH (07:35)
[2017-11-23] MEDS: DOCUSATE SODIUM 100 MG CAP PO SCH (07:36)
[2017-11-23 09:13] VITALS: BP 126/70; PULSE 83; TEMP 36.7; O2SAT 94
--- NOTE | 2017-11-26 16:15 | DISCHARGE SUMMARY ---
ADMITTING PHYSICIAN AND SURGEON: Dr. Hannah. ADMITTING DIAGNOSIS: Right knee degenerative joint disease. SURGERY PERFORMED: Right total knee arthroplasty. SECONDARY DIAGNOSES: Low back pain, sciatica, obesity, history of gastric bypass surgery, umbilical hernia repair. CONSULTS: None obtained. HISTORY AND PHYSICAL EXAMINATION: Well documented in the patient's chart. HOSPITAL COURSE: The patient was admitted on 11/20/2017 underwent total knee arthroplasty, tolerated the procedure well. There were no complications. She was transferred to the PACU postoperatively and later to the orthopedic floor for further care. She was given Ancef for antibiotic prophylaxis, ALISHA stockings, SCDs and aspirin for DVT prophylaxis. Hemoglobin, hematocrit and vital signs were monitored during her hospital stay and remained stable. She developed some postoperative anemia, did not require any blood transfusions. There were no complications. By postoperative day 2, she was tolerating a regular diet, pain was controlled with oral pain medicine. She was participating in physical therapy. On postop day 2, she was transferred to a rehab facility. She was given printed discharge instructions including new prescriptions for extra strength Tylenol, aspirin, iron supplement and oxycodone. Continue her home medications with the exception of [place] which she was told to stop. Continue physical therapy, weightbearing as tolerated, ALISHA stockings. Follow up in 10-12 days or sooner if there are any problems or concerns.
== END 2017-11-23 14:29 | DRG 470 ==
LOC: C.ACU 11:16 → C.3E 15:59 → ENRESERV 16:20
PROVIDERS: ADMIT Orthopaedic Surgery Sports Medicine; ATTEND Orthopaedic Surgery Sports Medicine
PROC: 0SRC0J9 Replacement of Right Knee Joint with Synthetic Substitute, Cemented, Open Approach (ICD-10-PCS; principal; 2017-11-20 13:30)
DX: M17.11 Unilateral primary osteoarthritis, right knee (principal); Z68.43 Body mass index [BMI] 50.0-59.9, adult; Z98.84 Bariatric surgery status; E66.9 Obesity, unspecified